=== PATIENT | female | born 1990 | race Two or more races ===

== ENCOUNTER 2018-04-06 07:29 | Emergency (ER) | payer MEDICAID ==
[~2018-04-06] VITALS: Ht 157.5 cm; Wt 59.0 kg
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
[2018-04-06] MEDS ORDERED: ACETAMINOPHEN ES 500 MG TABLET ONE (08:00)
[2018-04-06] MEDS ORDERED: IBUPROFEN 600 MG TABLET PO ONE (08:00)
[2018-04-06] MEDS: ACETAMINOPHEN ES 500 MG TABLET PO ONE (08:10)
[2018-04-06] MEDS: IBUPROFEN 600 MG TABLET PO ONE (08:10)
--- NOTE | 2018-04-06 08:34 | NUR ---
Patient discharged to home in stable condition. Written and verbal after care instructions given. Patient verbalizes understanding of instruction.
[2018-04-06 08:48] VITALS: BP 116/79
== END 2018-04-06 08:49 | disposition home or self-care (01) ==
LOC: ER 07:31
DX: M54.5 Low back pain (principal); V49.49XA Driver injured in collision with other motor vehicles in traffic accident, initial encounter; Y93.89 Activity, other specified; Y92.413 State road as the place of occurrence of the external cause; Y99.8 Other external cause status
CPT/HCPCS: 72100-TC; A4606; Z7610